=== PATIENT | male | born 1950 | race Caucasian/White ===

== ENCOUNTER 2016-06-25 08:18 | Emergency (ER) | payer MEDICARE, OTHER ==
--- NOTE | 2016-06-25 08:42 | Emergency Department Record ---
History of Present Illness - General Stated Complaint: HEADACHE Time Seen by Provider: 06/25/16 08:37 Source: Patient Mode of Arrival: Ambulatory Limitations: No limitations - History of Present Illness Initial Comments: 65 yo male presents to ED with a CC of right sided upper neck pain/base of the skull for the past several days. Patient denies specific injury, but does report recent URI symptoms and coughing fits. Patient tenderness to palpation to the area, and pain with ROM of the neck. Patient denies sore throat or ear pain symptoms. MD Complaint: Neck pain Onset/Timin -: Days(s) Place: Home Radiation: Occiput Severity: Moderate Quality: Aching Consistency: Constant Improves With: None Worsens With: Movement of neck Context: Other (possibly coughing?) Treatments Prior to Arrival: None - Related Data Previous Rx's Medication Instructions Recorded Amoxicillin/Potassium Clav 1 tab PO BID #20 tab 06/25/16 [Augmentin 875-125 Tablet] Hydrocodone/Acetaminophen [Bellevue 1 tab PO Q6H PRN #10 tab 06/25/16 5mg/325mg] Naproxen [Naprosyn] 500 mg PO Q12H #20 tab. 06/25/16 Allergies Allergy/AdvReac Type Severity Reaction Status Date / Time No Known Drug Allergies Allergy Verified 06/25/16 08:53 Review of Systems Constitutional: Denies: Chills, Fever, Malaise, Night sweats Eyes: Denies: Eye discharge, Eye pain ENT: Denies: Congestion, Ear pain, Epistaxis Respiratory: Denies: Cough, Dyspnea Cardiovascular: Denies: Chest pain, Dyspnea on exertion Endocrine: Denies: Fatigue, Heat or cold intolerance Gastrointestinal: Denies: Abdominal pain, Nausea, Vomiting Genitourinary: Denies: Incontinence, Retention Musculoskeletal: Reports: Neck pain. Denies: Arthralgia, Back pain, Gout, Joint swelling Skin: Denies: Bruising, Change in color Neurological: Reports: Headache. Denies: Abnormal gait, Confusion, Seizure Psychiatric: Denies: Anxiety Hematological/Lymphatic: Reports: Blood Clots. Denies: Anemia Physical Exam - General General Appearance: Alert, Oriented x3, Cooperative, No acute distress Limitations: No limitations - Head Head exam: Atraumatic, Normocephalic, Normal inspection Head exam detail: negative: Abrasion, Contusion, Fletcher's sign, General tenderness, Hematoma, Laceration - Eye Eye exam: Normal appearance. negative: Conjunctival injection, Periorbital swelling, Periorbital tenderness, Scleral icterus - ENT Ear exam: negative: Auricular hematoma, Auricular trauma Nasal Exam: negative: Active bleeding, Discharge, Dried blood, Foreign body Mouth exam: negative: Drooling, Laceration, Muffled voice, Tongue elevation - Neck Neck exam: Full ROM, Tenderness, Other (TTP over the right occiput extending down the right side of the neck region). negative: Lymphadenopathy, Meningismus - Respiratory Respiratory exam: Normal lung sounds bilaterally. negative: Rales, Respiratory distress, Rhonchi, Stridor - Cardiovascular Cardiovascular Exam: Regular rate, Normal rhythm, Normal heart sounds - GI/Abdominal GI/Abdominal exam: Soft. negative: Rebound, Rigid, Tenderness - Rectal Rectal exam: Deferred - exam: Deferred - Extremities Extremities exam: Normal inspection. negative: Calf tenderness, Pedal edema, Tenderness - Back Back exam: Denies: CVA tenderness (R), CVA tenderness (L) - Neurological Neurological exam: Alert, Normal gait, Oriented X3 - Psychiatric Psychiatric exam: Normal affect, Normal mood - Skin Skin exam: Normal color. negative: Abrasion Type of lesion: negative: abrasion Course - Reevaluation(s) Reevaluation #1: 06/25/16 09:55 Labs reviewed and are grossly unremarkable for an acute process. Reevaluation #2: 06/25/16 10:37 CT Brain: No acute intra-cranial process, (2) small right sided occipital lymph nodes that are of uncertain significance Patient reassessed, reports that his pain symptoms are not significantly improved. Will administer both Naprosyn and Bellevue for his symptoms as well as Augmentin for treatment of lymphadenitis. Patient has no meningeal signs on examination, and is otherwise well appearing. Patient appears stable for discharge at this time. 06/25/16 10:44 Medical Decision Making - Lab Data Result diagrams: 06/25/16 09:00 06/25/16 09:00 Disposition Disposition: Discharge Clinical Impression: Lymphadenitis Headache Qualifiers: Headache type: unspecified Headache chronicity pattern: acute headache Intractability: not intractable Qualified Code(s): R51 - Headache Disposition: Home, Self-Care Condition: (2) Stable Instructions: Acute Headache (ED) Additional Instructions: Return to ED if your symptoms worsen or if you have any concerns. Naprosyn, Bellevue, and Augmentin as directed. Follow-up with your family doctor in 3-5 days as directed. Prescriptions: Amoxicillin/Potassium Clav [Augmentin 875-125 Tablet] 1 tab PO BID #20 tab Naproxen [Naprosyn] 500 mg PO Q12H #20 tab. Hydrocodone/Acetaminophen [Bellevue 5mg/325mg] 1 tab PO Q6H PRN #10 tab PRN Reason: Pain - General Time of Disposition: 10:44
[2016-06-25] MEDS: DIAZEPAM 5 MG TABLET PO ONE (08:54)
[2016-06-25 09:07] LABS: BASO % 0.4 % (0-6); EOS % 2.3 % (0-6); GRAN % 63.8 % (47-80); HEMATOCRIT 46.6 % (42.0-52.0); HEMOGLOBIN 15.7 gm/dl (14.0-18.0); LYMPH % 23.1 % (16-45); MEAN CELL VOLUME 90.8 fl (81-97); MEAN CORPUSCULAR HEMOGLOBIN 30.6 pg (27-33); MEAN CORPUSCULAR HGB CONC 33.7 g/dl (32-36); MEAN PLATELET VOLUME 9.8 fl (7.4-10.4); MONO % 10.4 % (0-9); PLATELET COUNT 233 K/uL (130-400); RED BLOOD COUNT 5.13 M/uL (4.40-5.70); RED CELL DISTRIBUTION WIDTH 14.1 % (11.5-14.5); WHITE BLOOD COUNT W/O DIFF 8.3 K/uL (4.2-12.2)
[2016-06-25 09:16] LABS: INR 0.95; PROTHROMBIN TIME (PATIENT) 10.7 SECONDS (9.5-12.1)
[2016-06-25 09:36] LABS: ALB/GLOB RATIO 1.4 (1.1-1.8); ALBUMIN 4.4 gm/dL (3.5-5.0); ALKALINE PHOSPHATASE 85 U/L (38-126); ALT/SGPT 25 U/L (21-72); ANION GAP 7.5 (7-16); AST/SGOT 16 U/L (17-59); BILIRUBIN,TOTAL 0.41 mg/dL (0.2-1.3); BLOOD UREA NITROGEN 19 mg/dL (9-20); CARBON DIOXIDE 25.5 mmol/L (22-30); CREATININE 0.9 mg/dL (0.66-1.25); EST GLOMERULAR FILTRATION RATE > 60 ml/min; GLUCOSE,RANDOM 105 mg/dL (70-110); TOTAL PROTEIN 7.5 gm/dL (6.3-8.2)
[2016-06-25] MEDS: HYDROCODONE/APAP 5/325MG TABLET PO ONE (10:50)
[2016-06-25] MEDS: NAPROXEN 250 MG TABLET PO ONE (10:50)
--- NOTE | 2016-06-27 10:28 | CT SCAN REPORT ---
EXAM: HEAD CT WITHOUT CONTRAST HISTORY: ACUTE NECK PAIN AND NUMBNESS, ACUTE GENERALIZED HEADACHE NOT OTHERWISE SPECIFIED. TECHNIQUE: Contiguous axial images from the cerebral convexities to the foramen magnum were obtained without IV contrast. Comparison: None. Hand dominance: Right. FINDINGS: Mild generalized atrophy of the brain. No acute intracranial hemorrhage, mass effect, or midline shift. No CT evidence of large acute territorial infarct. The ventricles, basal cisterns, and sulci are within normal limits. The osseous structures are unremarkable. Mucosal thickening in the maxillary sinuses, right greater than left with possible mucous retention cyst in the right maxillary sinus measuring 2.5 cm. Lens implants bilaterally. Scleral calcification bilaterally. Small, but conspicuous right occipital lymph nodes, the largest measuring 9 x 3 mm. IMPRESSION: 1. NO ACUTE INTRACRANIAL PROCESS. 2. NONSPECIFIC RIGHT OCCIPITAL LYMPH NODES OF UNCERTAIN ETIOLOGY OR SIGNIFICANCE MEASURING UP TO 9 MM. 3. SINUS DISEASE ABOVE. JOB NUMBER: [id number] MTDD
== END 2016-06-25 10:59 | disposition home or self-care (01) ==
LOC: ER 08:18
DX: L04.0 Acute lymphadenitis of face, head and neck (principal); R51 Headache; M54.2 Cervicalgia
CPT/HCPCS: 99283; 99284; 85025; 85610; 80053; 70450; J3490